=== PATIENT | female | born 1955 | race Caucasian/White ===

== ENCOUNTER 2020-02-28 13:00 | Inpatient (IN) | payer OTHER ==
[2020-02-28] MEDS ORDERED: diazePAM 2 MG TABLET PO ONE ×2 (13:47→16:38)
[2020-02-28] MEDS ORDERED: diazePAM 2 MG TABLET ONE (16:49)
[2020-02-28 19:08] LABS: BASO % 0.6 % (0-2.0); EOS % 1.3 % (0-4.5); HEMATOCRIT 42.8 % (32.4-45.2); LYMPH % 29.2 % (8-40); MCH 28.2 pg (25.7-33.7); MCHC 32.8 g/dl (32.0-36.0); MEAN CELL VOLUME 86.1 fl (80-96); MEAN PLT VOLUME 8.6 fl (7.5-11.1); MONO % 6.1 % (3.8-10.2); NEUT % 62.8 % (42.8-82.8); PLATELET COUNT 214 K/MM3 (134-434); RBC 4.98 M/mm3 (3.60-5.2); RDW 13.7 % (11.6-15.6); WHITE BLOOD COUNT 6.9 K/mm3 (4.0-10.0)
[2020-02-28 19:35] LABS: CHLORIDE 106 mmol/L (98-107); POTASSIUM 3.6 mmol/L (3.5-5.1); SODIUM 141 mmol/L (136-145)
[2020-02-28 19:38] LABS: ALBUMIN 4.2 g/dl (3.4-5.0); ANION GAP 5 MMOL/L (8-16); CALCIUM 9.2 mg/dL (8.5-10.1); CO2 30 mmol/L (21-32); GLUCOSE,RANDOM 108 mg/dL (74-106)
[2020-02-28 19:39] LABS: BLOOD UREA NITROGEN 6.3 mg/dL (7-18)
[2020-02-28 19:41] LABS: CREATININE 0.5 mg/dL (0.55-1.3)
[2020-02-28 19:42] LABS: SGOT/AST 58 U/L (15-37); SGPT/ALT 71 U/L (13-61)
[2020-02-28 19:43] LABS: BILIRUBIN,TOTAL 0.5 mg/dL (0.2-1)
[2020-02-28 19:44] LABS: ALK PHOS 130 U/L (45-117)
[2020-02-29] MEDS ORDERED: ACETAMINOPHEN 650 MG/20.3 ML ORAL SOLUTION (CUPS) PO STA (02:05)
[2020-02-29] MEDS ORDERED: ACETAMINOPHEN 325 MG TABLET (FP) ONE (02:22)
[2020-02-29 03:38] VITALS: BMI 26.4
[2020-02-29 13:36] VITALS: BP 127/80; PULSE 62; TEMP 98.1
[2020-02-29] MEDS ORDERED: ATORVASTATIN CA 20 MG TABLET (FP) PO SCH (22:00)
[2020-03-01 05:27] LABS: CHOLESTEROL 208 mg/dL (50-200); TRIGLYCERIDES 72 mg/dL (0-150)
[2020-03-01 05:30] LABS: HDL CHOLESTEROL 60 mg/dL (40-60); LDL CHOLESTEROL (ONLY SJRH) 136 mg/dL (5-100)
== END 2020-02-29 19:00 | disposition home or self-care (01) | DRG 199 ==
LOC: JERFT 13:00 → JERBED 18:18 → J7W 02-29 02:55
PROVIDERS: ADMIT Internal Medicine; ATTEND Internal Medicine
DX: I16.0 Hypertensive urgency (principal); V89.2XXA Person injured in unspecified motor-vehicle accident, traffic, initial encounter; R51.9 Headache, unspecified; E78.5 Hyperlipidemia, unspecified; I10 Essential (primary) hypertension; Y93.89 Activity, other specified; Y92.481 Parking lot as the place of occurrence of the external cause; Y99.9 Unspecified external cause status
CPT/HCPCS: 36415; 70450-TC; 71046-TC-FY; 80053; 80061; 82550; 83036; 83721; 84443; 84484; 85025; 93005; 93010; 93306-TC; 99285-25; C9803; U0003